=== PATIENT | female | born 2000 | race Caucasian/White ===

== ENCOUNTER 2022-03-31 22:49 | Emergency (ER) | payer OTHER ==
[~2022-03-31] VITALS: Ht 160 cm; Wt 90.7 kg
[2022-03-31] MEDS ORDERED: LIDOCAINE HCL 1% LOCAL INJ 20 ML VIAL INJ ONE (23:15)
[2022-03-31] MEDS ORDERED: LIDOCAINE HCL 1% LOCAL INJ 20 ML VIAL ONE (23:22)
[2022-03-31] MEDS ORDERED: NAPROSYN500 MG PO (23:37)
[2022-03-31] MEDS ORDERED: CLEOCIN HCL300 MG PO (23:37)
== END 2022-03-31 23:47 | disposition home or self-care (01) ==
LOC: ER 22:50
DX: L03.011 Cellulitis of right finger (principal); Z98.84 Bariatric surgery status
CPT/HCPCS: 99282; J2001